=== PATIENT | female | born 1955 | race Caucasian/White ===

== ENCOUNTER → 2016-10-27 | Outpatient (CLI) | payer BC | END | disposition home or self-care (01) | LOC: NUC 09-29 08:00 | DX: R94.6 Abnormal results of thyroid function studies (principal) | CPT/HCPCS: 78014; 78999; A9512; A9531 ==

== ENCOUNTER 2018-01-07 01:28 | Emergency (ER) | payer BC ==
[~2018-01-07] VITALS: Ht 157.5 cm; Wt 100.9 kg
[2018-01-07 01:50] LABS: HEMATOCRIT 34.6 % (36.0-46.0); HEMOGLOBIN 12.1 G/DL (11.9-15.5); MCH 30.4 PG (29.0-34.0); MCV 86.9 FL (83-99); PLATELET COUNT 210 K/uL (156-360); RBC DIS.WIDTH-CV 12.4 % (11.8-14.6); RBC DIS.WIDTH-SD 39.8 % (39-53); RED BLOOD COUNT 3.98 M/uL (3.80-5.20); WHITE BLOOD COUNT 10.5 K/uL (4.1-10.2)
[2018-01-07 01:59] LABS: CHLORIDE 104 mEq/L (99-109); POTASSIUM 3.5 mEq/L (3.7-5.4); SODIUM 140 mEq/L (136-147)
[2018-01-07 02:01] LABS: GLUCOSE 162 mg/dL (70-99)
[2018-01-07 02:05] LABS: CREATININE 0.8 mg/dL (0.6-1.3); GFR ESTIMATE (CALCULATED) > 59 mL/min/; UREA NITROGEN (BUN) 25 mg/dL (9-23)
[2018-01-07 02:13] LABS: TROP-I INTERPRETATION NEGATIVE; TROPONIN-I < 0.01 ng/mL (0.0-0.30)
[2018-01-07 03:01] LABS: ALBUMIN 4.2 g/dL (3.2-4.8)
[2018-01-07 03:05] LABS: TOTAL BILIRUBIN 0.8 mg/dL (0.0-1.0)
[2018-01-07 03:07] LABS: ALKALINE PHOSPHATASE 85 IU/L (3-129)
[2018-01-07 03:09] LABS: AST (GOT) 73 IU/L (2-34); DIRECT BILIRUBIN 0.4 mg/dL (0.0-0.3)
[2018-01-07 03:10] LABS: ALT (GPT) 82 IU/L (3-49)
[2018-01-07 04:15] LABS: TROP-I INTERPRETATION NEGATIVE; TROPONIN-I < 0.01 ng/mL (0.0-0.30)
[2018-01-07] MEDS ORDERED: PROVENTIL HFA6.7 GM IH (04:51)
[2018-01-07] MEDS ORDERED: NAPROSYN500 MG PO (04:51)
[2018-01-07 04:59] LABS: LIPASE 133 U/L (1.0-51.0)
[2018-01-07 05:26] VITALS: BP 134/78
== END 2018-01-07 05:26 | disposition home or self-care (01) ==
LOC: EME 01:28
PROVIDERS: Emergency Medicine
DX: R07.89 Other chest pain (principal); R74.0 Nonspecific elevation of levels of transaminase and lactic acid dehydrogenase [LDH]; J40 Bronchitis, not specified as acute or chronic; I10 Essential (primary) hypertension; E78.5 Hyperlipidemia, unspecified; E11.9 Type 2 diabetes mellitus without complications
CPT/HCPCS: 71046; 76705; 80048; 80076; 83690; 84484; 85027; 85379; 93005; 94640; 99281; 99284